=== PATIENT | male | born 1945 | race Caucasian/White ===

== ENCOUNTER 2017-08-16 09:35 | Emergency (ER) | payer OTHER ==
[~2017-08-16] VITALS: Ht 177.8 cm; Wt 88.5 kg
[~2017-08-16 09:35] MED LIST: ASPIR 8181 MG PO; FLOMAX0.4 MG PO; LIPITOR10 MG PO; MOBIC15 MG PO; NORCO 5-325 TA1 EACH PO; OMEPRAZOLE20 MG PO; ULTRAM50 MG PO
[2017-08-16] MEDS ORDERED: CELEXA40 MG PO (09:44)
[2017-08-16] MEDS ORDERED: MEDROLDOSEPACK PO (10:47)
[2017-08-16] MEDS ORDERED: NAPROSYN500 MG PO (10:47)
[2017-08-16] MEDS ORDERED: CYCLOBENZAPRINE5 MG PO (10:47)
[2017-08-16 10:53] VITALS: BP 140/87
== END 2017-08-16 10:54 | disposition home or self-care (01) ==
LOC: M.ERS 09:35
DX: M54.31 Sciatica, right side (principal); L40.9 Psoriasis, unspecified; F17.210 Nicotine dependence, cigarettes, uncomplicated; Z96.643 Presence of artificial hip joint, bilateral

== ENCOUNTER 2018-06-09 01:10 | Emergency (ER) | payer OTHER ==
[~2018-06-09] VITALS: Ht 180.3 cm; Wt 81.7 kg
[~2018-06-09 01:10] MED LIST changes: +CELEXA40 MG PO; +CYCLOBENZAPRINE5 MG PO; +MEDROLDOSEPACK PO; +NAPROSYN500 MG PO
[2018-06-09] MEDS ORDERED: HYDROCODON-ACE1 EAC7 PO (01:29)
[2018-06-09 03:30] VITALS: BP 145/41
== END 2018-06-09 03:30 | disposition home or self-care (01) ==
LOC: M.ERS 01:10
DX: M96.830 Postprocedural hemorrhage of a musculoskeletal structure following a musculoskeletal system procedure (principal); L40.9 Psoriasis, unspecified; Z96.643 Presence of artificial hip joint, bilateral; F17.210 Nicotine dependence, cigarettes, uncomplicated